=== PATIENT | male | born 1965 | race Native Hawaiian/Other Pacific Islander ===

== ENCOUNTER 2020-11-08 08:12 | Emergency (ER) | payer SELFPAY ==
[2020-11-08 08:18] VITALS: BP 148/89
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
[2020-11-08 11:16] LABS: Basophils % (Auto) 0.4 % (0.0-1.8); Eosinophils # (Auto) 0.1 K/mm3 (0.0-0.4); Mean Corpuscular HGB Conc 36 % (32-34); Mean Corpuscular Volume 93 fl (84-94); Monocytes # (Auto) 0.5 K/mm3 (0.0-0.8); Monocytes % (Auto) 5.9 % (0.0-7.3); Platelet Count 253 K/mm3 (140-440); Red Blood Count 4.35 M/mm3 (3.65-5.03); Red Cell Distribution Width 13.4 % (13.2-15.2)
[2020-11-08 11:17] LABS: Hematocrit 40.3 % (35.5-45.6); Hemoglobin 14.5 gm/dl (11.8-15.2)
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
[2020-11-08] MEDS ORDERED: SODIUM CHLORIDE 0.9% 1000 ML 1,000 ML IV ONE (11:21)
[2020-11-08] MEDS ORDERED: MORPHINE 4 MG/1 ML INJ IV ONE (11:21)
[2020-11-08] MEDS ORDERED: ONDANSETRON 4 MG/2 ML INJ IV ONE (11:21)
[2020-11-08 11:41] LABS: Alanine Aminotransferase 16 units/L (7-56); Albumin 4.7 g/dL (3.9-5); Blood Urea Nitrogen 13 mg/dL (9-20); Calcium 8.9 mg/dL (8.4-10.2); Hemolysis Index 9
[2020-11-08 11:55] LABS: BUN/Creatinine Ratio 22
[2020-11-08] MEDS ORDERED: ONDANSETRON 4 MG/2 ML INJ ONE (13:26)
[2020-11-08] MEDS ORDERED: MORPHINE 2 MG/1 ML INJ ONE (13:26)
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
== END 2020-11-08 13:59 | disposition home or self-care (01) ==
LOC: ED 08:12
DX: S13.4XXA Sprain of ligaments of cervical spine, initial encounter (principal); S76.012A Strain of muscle, fascia and tendon of left hip, initial encounter; S30.1XXA Contusion of abdominal wall, initial encounter; R07.89 Other chest pain; Z72.89 Other problems related to lifestyle; Z79.899 Other long term (current) drug therapy; V89.2XXA Person injured in unspecified motor-vehicle accident, traffic, initial encounter; Y93.89 Activity, other specified; Y92.488 Other paved roadways as the place of occurrence of the external cause; Y99.8 Other external cause status
CPT/HCPCS: 36415; 71260; 72040; 73502; 73552; 74177; 80053; 83690; 85025; 96374; 99285; J2270; J2405; J7030; Q9967